=== PATIENT | female | born 1965 ===

== ENCOUNTER 2020-06-26 12:30 | Inpatient (IN) | payer OTHER ==
[~2020-06-26] VITALS: Ht 157.5 cm; Wt 90.7 kg
[2020-06-27] MEDS ORDERED: VASOTEC5 MG PO (18:09)
[2020-06-27] MEDS ORDERED: PLAQUENIL PO (18:10)
[2020-07-01] MEDS ORDERED: HYDROXYCHLOROQ200 MG PO (11:43)
== END 2020-07-05 15:04 | disposition home or self-care (01) | DRG 330 ==
LOC: O/R 07-01 07:38 → SURH 07-01 12:30 → SURG 07-01 15:44
PROVIDERS: ADMIT Colon & Rectal Surgery; ATTEND Colon & Rectal Surgery
PROC: 0TQB4ZZ Repair Bladder, Percutaneous Endoscopic Approach (ICD-10-PCS; 2020-07-01)
PROC: 0DJD8ZZ Inspection of Lower Intestinal Tract, Via Natural or Artificial Opening Endoscopic (ICD-10-PCS; 2020-07-01)
PROC: 4A033R1 Measurement of Arterial Saturation, Peripheral, Percutaneous Approach (ICD-10-PCS; 2020-07-01)
PROC: 0DTN4ZZ Resection of Sigmoid Colon, Percutaneous Endoscopic Approach (ICD-10-PCS; principal; 2020-07-01 13:45)
PROC: BB24ZZZ Computerized Tomography (CT Scan) of Bilateral Lungs (ICD-10-PCS; 2020-07-03)
DX: K57.32 Diverticulitis of large intestine without perforation or abscess without bleeding (principal); N32.1 Vesicointestinal fistula; N99.72 Accidental puncture and laceration of a genitourinary system organ or structure during other procedure; J95.89 Other postprocedural complications and disorders of respiratory system, not elsewhere classified; J98.11 Atelectasis; D12.5 Benign neoplasm of sigmoid colon; I11.9 Hypertensive heart disease without heart failure; G47.33 Obstructive sleep apnea (adult) (pediatric)

== ENCOUNTER → 2021-08-14 | Day surgery (SDC) | payer OTHER ==
[~2021-08-14] MED LIST: HYDROXYCHLOROQ200 MG PO; PLAQUENIL PO; VASOTEC5 MG PO
== END | disposition home or self-care (01) ==
LOC: ADM 08-07 13:15 → AMB-ENDOS 09:12
PROVIDERS: ATTEND Colon & Rectal Surgery
DX: K57.32 Diverticulitis of large intestine without perforation or abscess without bleeding (principal); K64.1 Second degree hemorrhoids; Z20.822 Contact with and (suspected) exposure to COVID-19